=== PATIENT | female | born 1970 | race African-American/Black ===

== ENCOUNTER 2017-05-24 10:31 | Emergency (ER) | payer BC, SELFPAY ==
--- NOTE | 2017-05-24 11:09 | RAD ---
CHEST 1 VIEW: Date: 05/24/17 HISTORY: Chest pain. COMPARISON: None. FINDINGS: There is eventration of the left hemidiaphragm. Remainder of lungs are clear. No pneumothorax or effu aurea. Cardiac silhouette and mediastinal contour within normal limits. No acute osseous abnormality. IMPRESSION: 1. No acute intrathoracic abnormality. 2. Mild eventration left hemidiaphragm. POS: [facility]
[2017-05-24 11:13] LABS: #Basophils 0.1 thou/uL (0.0-0.2); #Eosinphils 0.2 thou/uL (0.0-0.7); #Lymphocytes 3.3 thou/uL (1.20-3.40); #Monocytes 0.7 thou/uL (0.11-0.59); #Neutrophils 4.3 thou/uL (1.40-6.50); %Eosinophils 1.9 % (0.0-10.0); %Lymphocytes 38.9 % (21.0-51.0); %Neutrophils 50.2 % (42.0-75.0); Hemoglobin 15.3 g/dL (12.0-16.0); Mean Corpuscular HGB CONC 31.6 g/dL (32.0-36.0); Mean Corpuscular Hemoglobin 31.3 pg (27.0-31.0); Platelet Count 352 thou/uL (130-400); RBC Distribution Width 13.1 % (11.5-14.5); White Blood Cell (WBC) Count 8.5 thou/uL (4.8-10.8)
[2017-05-24 11:32] LABS: ALT (SGPT) 15 U/L (8-55); AST (SGOT) 18 U/L (5-34); Albumin 3.9 g/dL (3.5-5.0); Alkaline Phosphatase 123 U/L (40-150); Anion Gap 17 mmol/L (10-20); BUN (Urea Nitrogen) 11 mg/dL (7.0-18.7); Bilirubin, Total 0.6 mg/dL (0.2-1.2); CK (CPK) 75 U/L (29-168); Calc. Creatinine Clearance 0 mL/min (70-130); Calcium 9.8 mg/dL (7.8-10.44); Carbon Dioxide 21 mmol/L (22-29); Chloride 105 mmol/L (98-107); Estimated GFR-MDRD Greater than 90; Globulin 3.7 g/dL (2.4-3.5); Glucose 89 mg/dL (70-105); Potassium 4.6 mmol/L (3.5-5.1); Protein, Total 7.6 g/dL (6.0-8.3); Sodium 138 mmol/L (136-145)
[2017-05-24 11:36] LABS: CKMB 0.8 ng/mL (0-6.6); Troponin I Less than 0.010 ng/mL (< 0.028)
[2017-05-24] MEDS ORDERED: Nitroglycerin 2% Ointment 1 INCH/1 GM Packet ONE (12:16)
[2017-05-24] MEDS ORDERED: Ondansetron HCl/PF 4 MG/2 ML Vial ONE ×3 (12:53→14:11)
[2017-05-24 14:10] LABS: Troponin I Less than 0.010 ng/mL (< 0.028)
[2017-05-24] MEDS ORDERED: Pantoprazole 40 MG VIAL ONE (14:10)
--- NOTE | 2017-05-29 15:33 | EKG ---
Test Reason : Blood Pressure : / mmHG Vent. Rate : 072 BPM Atrial Rate : 072 BPM P-R Int : 118 ms QRS Dur : 098 ms QT Int : 416 ms P-R-T Axes : 058 030 025 degrees QTc Int : 455 ms Normal sinus rhythm Normal ECG Confirmed by PADDY KWON ([id number]), editor at large FARTUN WHITEHEAD ([id number]) on 05/29/2017 3:32:47 PM Referred By: DOYLE Confirmed By:PADDY KWON
== END 2017-05-24 14:31 | disposition home or self-care (01) ==
LOC: ERS 10:31
DX: R07.89 Other chest pain (principal); R11.0 Nausea; E78.5 Hyperlipidemia, unspecified; J40 Bronchitis, not specified as acute or chronic; G47.30 Sleep apnea, unspecified; Z87.891 Personal history of nicotine dependence
CPT/HCPCS: 71045; 80053; 82553; 84484; 85025; 93005; 96374; 96375; 96376; 99406; C9113; J2405

== ENCOUNTER 2018-09-13 03:38 | Emergency (ER) | payer BC ==
[2018-09-13] MEDS ORDERED: Metoclopramide HCl 10 MG/2 ML VIAL ONE (04:21)
[2018-09-13 04:39] LABS: Bilirubin Negative (Negative); Blood, Urine Trace (Negative); Clarity CLOUDY (Clear); Glucose, Urine (Dipstick) Negative (Negative); Leukocyte Moderate (Negative); Nitrite Negative (Negative); Protein, Urine (Dipstick) Negative (Neg-Trace); Specific Gravity, Urine 1.011 (1.002-1.036); Urobilinogen 0.2 mg/dL (0.2-1.0)
[2018-09-13 04:43] LABS: Bacteria/HPF None Seen HPF (None Seen); Hyaline Casts/LPF 0-3 HYALINE CAST LPF (0-3 Hyaline); Squamous Epithelial 0-3 HPF (0-3)
[2018-09-13] MEDS ORDERED: Ketorolac Tromethamine 30 MG/ML VIAL ONE (04:43)
[2018-09-13] MEDS ORDERED: diphenhydrAMINE 50 MG/ML VIAL ONE (04:43)
[2018-09-13 04:51] LABS: #Basophils 0.1 thou/uL (0.0-0.2); #Eosinphils 0.2 thou/uL (0.0-0.7); #Lymphocytes 2.9 thou/uL (1.20-3.40); #Monocytes 0.7 thou/uL (0.11-0.59); #Neutrophils 4.8 thou/uL (1.40-6.50); %Eosinophils 2.3 % (0.0-10.0); %Lymphocytes 32.8 % (21.0-51.0); %Monocytes 8.4 % (0.0-10.0); %Neutrophils 55.5 % (42.0-75.0); Mean Corpuscular HGB CONC 32.5 g/dL (32.0-36.0); Mean Corpuscular Hemoglobin 32.5 pg (27.0-31.0); Mean Corpuscular Volume 99.9 fL (78.0-98.0); Mean Platelet Volume 7.3 fL (7.4-10.4); Platelet Count 280 thou/uL (130-400); Red Blood Cell (RBC) Count 4.61 mill/uL (4.20-5.40); White Blood Cell (WBC) Count 8.7 thou/uL (4.8-10.8)
[2018-09-13 05:27] LABS: ALT (SGPT) 15 U/L (8-55); AST (SGOT) 18 U/L (5-34); Albumin 3.6 g/dL (3.5-5.0); Alkaline Phosphatase 101 U/L (40-150); Anion Gap 9 mmol/L (10-20); BUN (Urea Nitrogen) 6 mg/dL (7.0-18.7); Bilirubin, Total 0.9 mg/dL (0.2-1.2); Calc. Creatinine Clearance 0 mL/min (70-130); Carbon Dioxide 25 mmol/L (22-29); Chloride 105 mmol/L (98-107); Estimated GFR-MDRD Greater than 90; Globulin 2.4 g/dL (2.4-3.5); Glucose 107 mg/dL (70-105); Magnesium 2.1 mg/dL (1.6-2.6); Potassium 4.2 mmol/L (3.5-5.1); Sodium 135 mmol/L (136-145)
--- NOTE | 2018-09-13 06:40 | CT ---
CT HEAD WITHOUT CONTRAST: INDICATIONS: Headache. Right hemifacial pain. COMPARISON: No prior comparison. FINDINGS: There is no ventriculomegaly, mass effect, midline shift, or acute intracranial hemorrhage. Scattere d extraaxial calcific densities are present, likely dystrophic, dural-based calcifications. Mild sca ttered paranasal sinus mucosal thickening is present. IMPRESSION: No acute intracranial hemorrhage or mass effect. POS: [facility]
--- NOTE | 2018-09-13 06:44 | CT ---
CTA HEAD WITH CONTRAST: CTA NECK WITH CONTRAST: 3D VOLUME RENDERING PERFORMED INDICATIONS: Right hemifacial pain. Headache. FINDINGS: Mild atherosclerosis is seen at the aortic arch. The great vessels that emanate from the aortic arch are grossly patent. Limited visualization of right subclavian artery due to high density from adjac ent venous contrast. There is a diffuse small caliber of the right vertebral artery. The dominant l eft vertebral artery is patent. There is a small caliber basilar artery seen. Small caliber bilater al posterior cerebral arteries are patent. The posterior communicating arteries are unremarkable. T here is no high-grade stenosis or occlusion of either MCA. Bilateral anterior cerebral arteries are patent. The anterior communicating artery is unremarkable. Evaluation of the bilateral common carot id and cervical internal carotid arteries reveal no occlusion or severe stenosis. There is mild calc ification seen at each carotid terminus. No evidence of a discrete intracranial aneurysm. IMPRESSION: 1. No high-grade stenosis or occlusion of the major arterial system of the head and neck. 2. Diffuse small caliber right vertebral artery, which may be on the basis of a congenital process. Correlation with prior imaging would prove useful in this regard, to confirm stability. Otherwise, recommend clinical correlation to exclude evidence of vertebrobasilar insufficiency. If there is con cern for ischemia in this regard, dedicated brain MRI should be obtained. 3. Incidental note of borderline sized cervical chain lymph nodes, nonspecific. Correlate clinicall y. POS: [facility]
--- NOTE | 2018-09-17 12:27 | EKG ---
Test Reason : Blood Pressure : / mmHG Vent. Rate : 062 BPM Atrial Rate : 062 BPM P-R Int : 122 ms QRS Dur : 088 ms QT Int : 432 ms P-R-T Axes : 051 030 050 degrees QTc Int : 438 ms Normal sinus rhythm Possible Left atrial enlargement Borderline ECG Confirmed by EMILIANA DIAZ ([id number]), editor in chief FARTUN WHITEHEAD ([id number]) on 09/17/2018 12:26:45 PM Referred By: Confirmed By:EMILIANA DIAZ
== END 2018-09-13 07:11 | disposition home or self-care (01) ==
LOC: ERS 03:38
DX: R51 Headache (principal); N39.0 Urinary tract infection, site not specified; Z71.6 Tobacco abuse counseling; E78.00 Pure hypercholesterolemia, unspecified; Z79.899 Other long term (current) drug therapy; G47.30 Sleep apnea, unspecified
CPT/HCPCS: 70450; 70496; 70498; 80053; 81003; 81015; 83735; 84484; 85025; 85652; 93005; 96365; 96375; 99406; J1200; J1885; J2765

== ENCOUNTER 2019-04-14 15:45 | Outpatient (CLI) | payer BC ==
--- NOTE | 2019-04-14 16:23 | MMO ---
Bilateral MAMMO Bilat Screen [facility]. CLINICAL HISTORY: Patient is 49 years old and is seen for screening. The patient has no family history of breast cancer. The patient has no personal history of cancer. VIEWS: The views performed were: bilateral craniocaudal with tomosynthesis and bilateral mediolateral oblique with tomosynthesis. This study has been interpreted with the assistance of computer-aided detection. MAMMOGRAM FINDINGS: The breasts are almost entirely fat. There are no suspicious masses, suspicious calcifications, or new areas of architectural distortion. IMPRESSION: THERE IS NO MAMMOGRAPHIC EVIDENCE OF MALIGNANCY. A ROUTINE FOLLOW-UP MAMMOGRAM IN 1 YEAR IS RECOMMENDED. THE RESULTS OF THIS EXAM WERE SENT TO THE PATIENT. ACR BI-RADS Category 1 - Negative MAMMOGRAPHY NOTE: 1. A negative mammogram report should not delay a biopsy if a dominant of clinically suspicious mass is present. 2. Approximately 10% to 15% of breast cancers are not detected by mammography. 3. Adenosis and dense breasts may obscure an underlying neoplasm. Reported by: JENNIFER BROUSSARD MD Electonically Signed: [id number]
== END 2019-04-14 15:46 | disposition home or self-care (01) ==
LOC: BICMAMMO 15:45
PROVIDERS: ATTEND Family Medicine
DX: Z12.31 Encounter for screening mammogram for malignant neoplasm of breast (principal)
CPT/HCPCS: 77063; 77067

== ENCOUNTER 2021-08-05 12:51 | Emergency (ER) | payer BC ==
[2021-08-05 14:20] LABS: #Basophils 0.1 thou/uL (0.0-0.2); #Eosinphils 0.2 thou/uL (0.0-0.7); #Lymphocytes 3.5 thou/uL (1.20-3.40); #Monocytes 0.6 thou/uL (0.11-0.59); #Neutrophils 4.7 thou/uL (1.40-6.50); %Basophils 1.2 % (0.0-1.0); %Eosinophils 2.6 % (0.0-10.0); %Monocytes 6.9 % (0.0-10.0); %Neutrophils 51.4 % (42.0-75.0); Mean Corpuscular HGB CONC 32.2 g/dL (32.0-36.0); Mean Corpuscular Hemoglobin 32.6 pg (27.0-31.0); Mean Platelet Volume 7.1 fL (7.4-10.4); Platelet Count 378 thou/uL (130-400); RBC Distribution Width 12.6 % (11.5-14.5); Red Blood Cell (RBC) Count 4.62 mill/uL (4.20-5.40); White Blood Cell (WBC) Count 9.2 thou/uL (4.8-10.8)
[2021-08-05 14:37] LABS: ALT (SGPT) 20 U/L (8-55); AST (SGOT) 16 U/L (5-34); Albumin 3.7 g/dL (3.5-5.0); Alkaline Phosphatase 143 U/L (40-110); Anion Gap 11 mmol/L (10-20); BUN (Urea Nitrogen) 8 mg/dL (9.8-20.1); Bilirubin, Total 0.8 mg/dL (0.2-1.2); Calc. Creatinine Clearance 0 mL/min (70-130); Calcium 9.5 mg/dL (7.8-10.44); Carbon Dioxide 26 mmol/L (22-29); Chloride 106 mmol/L (98-107); Globulin 3.6 g/dL (2.4-3.5); Glucose 99 mg/dL (70-105); Lipase 11 U/L (8-78); Potassium 4.1 mmol/L (3.5-5.1); Protein, Total 7.3 g/dL (6.0-8.3); Sodium 139 mmol/L (136-145)
[2021-08-05 16:59] LABS: Bacteria/HPF None Seen HPF (None Seen); Bilirubin Negative (Negative); Blood, Urine 1+ (Negative); Clarity Clear (Clear); Glucose, Urine (Dipstick) Normal (Negative); Ketone, Urine Trace mg/dL (Negative); Leukocyte Negative Leu/uL (Negative); Nitrite Negative (Negative); Protein, Urine (Dipstick) 10 mg/dL (Neg-Trace); RBC/HPF 0-3 HPF (0-3); Squamous Epithelial 0-3 HPF (0-3); Urobilinogen Normal mg/dL (Less than 2); WBC/HPF 0-3 HPF (0-3); pH, Urine 5.5 (5.0-9.0)
[2021-08-05] MEDS ORDERED: Metoclopramide HCl 10 MG/2 ML VIAL ONE (17:28)
[2021-08-05] MEDS ORDERED: Dicyclomine 20 MG/2 ML VIAL ONE (17:28)
[2021-08-05] MEDS ORDERED: diphenhydrAMINE 12.5 MG/5 ML UDCUP ONE (17:28)
[2021-08-05] MEDS ORDERED: diphenhydrAMINE 50 MG/ML VIAL ONE (17:29)
== END 2021-08-05 18:27 | disposition home or self-care (01) ==
LOC: ERS 12:51
DX: B34.9 Viral infection, unspecified (principal); E78.00 Pure hypercholesterolemia, unspecified; Z79.899 Other long term (current) drug therapy
CPT/HCPCS: 36415; 70450; 71045; 80053; 81003; 81015; 83690; 84443; 84484; 85025; 87804; 93005; 96372; 96374; 96375; J0500; J1200; J2765; Q0163

== ENCOUNTER 2023-09-10 15:59 | Emergency (ER) | payer BC ==
[2023-09-10 16:56] LABS: #Basophils 0.04 10x3/uL (0.0-0.2); #Eosinphils Less than 0.03 10x3/uL (0.0-0.7); %Basophils 0.4 % (0.0-1.0); %Eosinophils 0.1 % (0.0-10.0); %Lymphocytes 16.5 % (21.0-51.0); %Monocytes 3.6 % (0.0-10.0); Hematocrit 48.5 % (36.0-47.0); Hemoglobin 16.2 g/dL (12.0-16.0); Mean Corpuscular HGB CONC 33.4 g/dL (32.0-36.0); Mean Corpuscular Hemoglobin 32.6 pg (27.0-31.0); Mean Corpuscular Volume 97.6 fL (78.0-98.0); Mean Platelet Volume 9.4 fL (7.4-10.4); Platelet Count 392 10x3/uL (130-400); RBC Distribution Width 14.6 % (11.5-14.5); Red Blood Cell (RBC) Count 4.97 mill/uL (4.20-5.40)
[2023-09-10 17:13] LABS: ALT (SGPT) 31 U/L (8-55); AST (SGOT) 28 U/L (5-34); Albumin 3.5 g/dL (3.5-5.0); Alkaline Phosphatase 121 U/L (40-110); Anion Gap 16 mmol/L (10-20); BUN (Urea Nitrogen) 14 mg/dL (9.8-20.1); Bilirubin, Total 0.4 mg/dL (0.2-1.2); Calc. Creatinine Clearance 0 mL/min (70-130); Calcium 10.3 mg/dL (7.8-10.44); Carbon Dioxide 25 mmol/L (22-29); Chloride 102 mmol/L (98-107); Estimated GFR 72; Globulin 4.1 g/dL (2.4-3.5); Glucose 127 mg/dL (70-105); Potassium 4.2 mmol/L (3.5-5.1); Protein, Total 7.6 g/dL (6.0-8.3); Sodium 139 mmol/L (136-145)
[2023-09-10] MEDS ORDERED: Ketorolac Tromethamine 30 MG (1 mL) VIAL ONE (18:19)
[2023-09-10] MEDS ORDERED: Ondansetron ODT 4 MG TAB ONE (18:49)
== END 2023-09-10 19:23 | disposition home or self-care (01) ==
LOC: ERS 15:59
DX: R09.1 Pleurisy (principal); F17.210 Nicotine dependence, cigarettes, uncomplicated
CPT/HCPCS: 36415; 71045; 80053; 83880; 85025; 96372; J1885; Q0162